=== PATIENT | female | born 1975 | race Hispanic/Latino ===

== ENCOUNTER 2018-06-21 09:48 | Inpatient (IN) | payer OTHER | END 2018-06-27 17:41 | disposition home or self-care (01) | LOC: EDH 09:48 → EDHIP 13:12 → 4AH 15:15 | DX: A41.9 Sepsis, unspecified organism (principal); A79.9 Rickettsiosis, unspecified; E86.0 Dehydration; K29.70 Gastritis, unspecified, without bleeding; K81.9 Cholecystitis, unspecified ==

== ENCOUNTER 2024-07-23 14:23 | Emergency (ER) | payer OTHER ==
[~2024-07-23] VITALS: Ht 157.5 cm; Wt 70.8 kg
[~2024-07-23 14:23] MED LIST: ACET325C6 PO; ASPI1TAB7 PO; GABA100C PO; OMEP40CA21 PO
[2024-07-23] MEDS: CYCLOBENZAPRINE HCL 10 MG TABLET PO ONE (15:18)
[2024-07-23] MEDS: ketOROlac 60 MG VIAL (30MG/ML) IM ONE (15:18)
--- NOTE | 2024-07-23 15:33 | HMCIMG ---
LEFT SCAPULA RADIOGRAPHS - 2-3 VIEWS INDICATION: Pain COMPARISON: None FINDINGS: No evidence for acute fracture or dislocation. Acromioclavicular and glenohumeral alignments are well maintained. Visible portions of the left clavicle are intact. IMPRESSION: No evidence for fracture or dislocation.
[2024-07-23] MEDS ORDERED: IBUP-2070 PO (15:45)
[2024-07-23] MEDS ORDERED: CYCL10TA16 PO (15:45)
--- NOTE | 2024-07-23 15:45 | ERN ---
ED Note History of Present Illness Stated Complaint: LEFT UPPER BACK PAIN Chief Complaint: Back Pain-No Injury Time Seen by MD: 14:25 Time Seen by Midlevel: 14:25 Dictation: The patient is a 49-year-old female with a history of tubal ligation, gastritis presents to the emergency department with left scapular pain onset 2.5 month ago. Patient denies any traumas. Reports that she has been doing massage with no relief. No other symptoms reported Allergies: Coded Allergies: No Known Allergies (Verified Allergy, Unknown, 06/21/18) Home Meds Active Scripts Lidocaine (Lidocaine) 4 % Adh..patch, 1 PATCH TP DAILY for 10 Days, #10 PATCH 0 Refills Prov:JOLIE WEBB [facility] 07/23/24 Cyclobenzaprine HCl (Flexeril) 10 Mg Tab, 10 MG PO TID for muscle sstiffness, #14 TAB 0 Refills Prov:LENA WEBBLEN [facility] 07/23/24 Ibuprofen (Ibuprofen) 600 Mg Tablet, 600 MG PO Q6H PRN for PAIN, #15 TAB Prov:JOLIE WEBB [facility] 07/23/24 Gabapentin (Neurontin) 100 Mg Capsule, 100 MG PO Q8H for 30 Days, CAP Prov:STEPHANY GUTIERREZ [employer]WRITING CLERK 06/27/18 Reported Medications Acetaminophen (Tylenol) 325 Mg Capsule, 650 MG PO Q6HPRN PRN for FEVER, CAP 06/21/18 Aspirin/Acetaminophen/Caffeine (Excedrin Migraine Caplet) 1 Each Tablet, 1 EACH PO Q6HPRN PRN for HEADACHE, TAB 06/21/18 Omeprazole (Omeprazole) 40 Mg Capsule.dr, 40 MG PO DAILY 06/21/18 Past Medical History Past Medical History: No Pertinent History Surgical History: None RN Note Reviewed/Agreed w/PFSH: Yes Review of System Dictation Constitutional: Negative for fever,chills, and weight loss Eyes: Negative for injury, pain,redness, and discharge ENT: Negative for injury,pain or swelling Cardiovascular: Negative for chest pain, palpitations, and edema Respiratory: Negative for shortness of breath, cough, and wheezing, Abdomen/GI: Negative for abdominal pain, nausea, vomiting, diarrhea, and constipation Back: Negative for injury and pain : Negative for injury, bleeding and discharge MS/Extremity: Negative for injury and deformity positive for left upper back. Skin: Negative for rash, and discoloration Neuro: Negative for headache, weakness, numbness, tingling, and seizure Psych: Negative for suicide ideation, homicidal ideation, and hallucinations Initial Vital Sign VS Vital Signs Date Time Temp Pulse Resp B/P (MAP) Pulse Ox O2 Delivery O2 Flow Rate FiO2 07/23/24 14:28 97.5 81 20 139/89 99 Room Air 07/23/24 16:00 0 21 Physical Exam Dictation Vital Signs reviewed General Appearance: Alert, oriented x 3, no acute distress, well developed, nourished. Head and Face: non-traumatic. Eyes: PERRL, pink conjunctivas, eyelid no trauma, anterior chamber with arcus senilis. Ears: Pinnas intact and no signs of trauma or erythema ear canals clear and no discharge TM no erythema Nose: No discharge, no bleeding. Oropharynx: Mouth normal, tongue pink. pharynx clear,no erythema, tonsils no exudates, no abscesses noted, mucous membrane moist Neck: Supple, non-tender, no thyromegaly, no masses, no JVD, no bruits Breast:Deferred Chest:No tenderness, no crepitus, no paradoxical movement, no retractions Lungs:Clear, well-ventilated, symmetric, no rales, no wheezing, no rhonchi, no stridor, good breath sounds bilaterally Heart: Regular rate, regular rhythm, no murmur, no gallops Vascular: no peripheral edema, Abdomen: Soft, positive bowel sounds, nondistended, no guarding, nontender, no rebound, no masses no hepatomegaly, no splenomegaly, no Flowers's sign, no hernias. Rectal: Deferred Genital: Deferred Neurological: Normal speech, motor function intact, sensory function intact Musculoskeletal: Neck nontender, full range of motion, back nontender, full range of motion, Extremities: nontender, full range of motion Skin: Color pink, dry, no turgor, no rash, no lacerations, no abrasions, no contusions. Lymphatic: Deferred Results (Laboratory/Radiology) Laboratory/Radiology REASON: pain ORDERING PHYSICIAN: JOLIE WEBB [employer] OPERATOR INSIDE PROCEDURE: SCAP LT - SCAPULA COMP LT LEFT SCAPULA RADIOGRAPHS - 2-3 VIEWS INDICATION: Pain COMPARISON: None FINDINGS: No evidence for acute fracture or dislocation. Acromioclavicular and glenohumeral alignments are well maintained. Visible portions of the left clavicle are intact. IMPRESSION: No evidence for fracture or dislocation. Labs Reviewed?: Yes ED Course ED Course Orders Procedure Category Date Status Time Scapula Comp Lt RAD 07/23/24 Resulted 14:52 Ketorolac 60mg/2ml PHA 07/23/24 Complete (Toradol 60mg/2ml) 15:00 Cyclobenzaprine Hcl PHA 07/23/24 Complete (Cyclobenzaprine Hcl 15:00 Current Medications Medications (Trade) Dose Ordered Sig/Constantine Route PRN Reason Start Time Stop Time Status Last Admin Dose Admin Cyclobenzaprine HCl (Cyclobenzaprine HCl) 10 mg ONCE ONCE PO 07/23/24 15:00 07/23/24 15:01 DC 07/23/24 15:18 Ketorolac Tromethamine (toRADol 60MG/ 2ML) 60 mg ONCE ONCE IM 07/23/24 15:00 07/23/24 15:01 DC 07/23/24 15:18 Vital Signs Date Time Temp Pulse Resp B/P (MAP) Pulse Ox O2 Delivery O2 Flow Rate FiO2 07/23/24 16:00 97.9 80 20 131/87 99 Room Air* 0 21 07/23/24 14:28 97.5 81 20 139/89 99 Room Air Medical Decision Making MDM The patient is a 49-year-old female with a history of tubal ligation, gastritis presents to the emergency department with left scapular pain onset 2.5 month ago. Patient denies any traumas. Reports that she has been doing massage with no relief. No other symptoms reported Showed no acute fractures or dislocations. Patient in no acute distress. Full range of motion to all extremities, sitting devices we will follow up Differential diagnosis: Scapular fracture, scapular contusion, muscle spasm Need for hospitalization: Patient does not meet criteria for hospitalization. There are no social concerns with this patient. DX & DISP Disposition: Discharge Departure Impression: Primary Impression: Pain of left scapula Condition: Stable Scripts Lidocaine (Lidocaine) 4 % Adh..patch 1 PATCH TP DAILY for 10 Days, #10 PATCH 0 Refills Prov: JOLIE WEBB [employer] OPERATOR INSIDE 07/23/24 Cyclobenzaprine HCl (Flexeril) 10 Mg Tab 10 MG PO TID for muscle sstiffness, #14 TAB 0 Refills Prov: WEBBJOLIE TREVIÑO 07/23/24 Ibuprofen (Ibuprofen) 600 Mg Tablet 600 MG PO Q6H PRN for PAIN, #15 TAB Prov: JOLIE WEBB 07/23/24 Additional Instructions: Please follow up with your PCP in 1-2 days. Take medications as prescribed. FOLLOW-UP WITH PRIMARY CARE PROVIDER IN 1 TO 2 DAYS. TAKE MEDICATIONS DIRECTED HERE IN THE EMERGENCY ROOM. OKAY TO CONTINUE HOME MEDICATIONS UNLESS OTHERWISE DISCUSSED DURING YOUR VISIT IN THE EMERGENCY ROOM TODAY. RETURN TO YOUR NEAREST EMERGENCY ROOM IF SYMPTOMS WORSEN OR IF THERE IS NO IMPROVEMENT. CALL 911 IF YOU NEED IMMEDIATE ASSISTANCE. TAKE TYLENOL OR MOTRIN [id number] NEEDED AND IF NO CONTRAINDICATIONS ARE PRESENT. INCREASE ORAL HYDRATION. A WOUND CULTURE OR URINE CULTURE WAS ORDERED HERE IN THE EMERGENCY ROOM DEPARTMENT PLEASE FOLLOW-UP WITH PRIMARY CARE PROVIDER AND ADVISE THEM TO GET REPEAT PORTS FROM OUR FACILITY. IF YOU HAD ANY [place] WRAP/SPLINTS THAT WERE APPLIED HERE, PLEASE DO NOT REMOVE THEM UNTIL YOU SEE YOUR PRIMARY CARE OR SPECIALTY. Referrals: TELMA FALL (PCP) Time of Disposition: 15:44 I have reviewed the case, and I agree with, Diagnosis and Plan JOLIE WEBB Jul 23, 2024 15:45
[2024-07-23] MEDS ORDERED: LIDO1ADH82 TP (15:57)
[2024-07-23 16:00] VITALS: BP 131/87; PULSE 80; RESP 20; TEMP 97.9; O2SAT 99
== END 2024-07-23 16:16 | disposition home or self-care (01) ==
LOC: EDH 14:23
DX: M25.512 Pain in left shoulder (principal); Z79.899 Other long term (current) drug therapy
CPT/HCPCS: 99283; 73010; 96372; J1885